=== PATIENT | female | born 1945 | race Hispanic/Latino ===

== ENCOUNTER 2020-05-31 16:34 | Outpatient (CLI) | payer MEDICARE, SELFPAY ==
--- NOTE | ~2020-05-31 | MM_ITS ---
EXAMINATION: MM screening [facility] BI w suzette HISTORY: Screening TECHNIQUE: Craniocaudal and mediolateral oblique 3-D tomosynthesis images were obtained and synthetic 2-D images were generated. CAD analysis was submitted and interpreted. COMPARISON: Comparison to multiple prior studies sequentially, with oldest reviewed study dated 05/2012. BREAST PARENCHYMAL COMPOSITION: FINDINGS: There is no evidence of suspicious mass, calcification, or architectural distortion to sugg est malignancy in either breast. There has been no suspicious interval change. IMPRESSION: 1. No mammographic evidence of malignancy. 2. Recommend routine screening mammography in one year. BI-RADS Category 1: Negative Reviewed, dictated and finalized at location A.
== END 2020-05-31 16:35 | disposition home or self-care (01) ==
LOC: ANHIMG 16:39
PROVIDERS: PCP Registered Nurse; Visit Provider Registered Nurse
DX: Z12.31 Encounter for screening mammogram for malignant neoplasm of breast (principal)
CPT/HCPCS: 77063; 77067

== ENCOUNTER 2020-09-10 16:39 | Emergency (ER) | payer MEDICARE, SELFPAY ==
--- NOTE | ~2020-09-10 | CT_ITS ---
EXAMINATION: CT brain wo con, CT cervical spine wo con EXAM DATE: 09/10/2020 17:08 INDICATION: Fall one week ago. Left-sided headache. TECHNIQUE: Spiral CT of the head was performed without contrast. Axial, coronal and sagittal images were reviewed. Spiral CT of the cervical spine was performed without contrast. Axial images were rev iewed. Coronal and sagittal reformatted images were also reviewed. The dose-length product (DLP) fo r this examination was 605.33 (accession [id number]), 251.75 (accession [id number]) mGy-cm. The exposure was tailored according to patient size, and iterative reconstruction (ASIR) was used as additional dose reduction technique. There is no prior study for comparison. FINDINGS: HEAD CT: There is no acute intraparenchymal hemorrhage. No evidence of intraparenchymal brain mass l esion. No evidence of acute infarction. There is no mass effect or midline shift. There is no obstru ctive hydrocephalus suspected. There are no extra-axial collections. There are no acute calvarial f ractures. The orbits are unremarkable. Soft tissue is unremarkable. The visualized sinuses and mas toid air cells are well aerated. CERVICAL CT: There is no evidence of acute cervical fracture. The odontoid process is intact. Pre-d ens space is normal. Prevertebral soft tissue is normal. There are no soft tissue abnormalities laura ntified. There is no disc space widening or traumatic vertebral body subluxation suspected. Some ad vanced cervical spondylosis. A detailed level by level evaluation of spondylosis can be added as add endum if requested. IMPRESSION: No acute intracranial findings or cervical fracture. Reviewed, dictated and finalized at location A. ER MAN IMPRESSION: No acute intracranial findings or cervical fracture.
[2020-09-10 16:46] VITALS: BP 135/60; PULSE 64; RESP 20; TEMP 36.7; O2SAT 100
--- NOTE | 2020-09-10 16:53 | ED.GENADULT ---
HPI - General Adult General Chief complaint: Headache Stated complaint: headache after a fall Time Seen by Provider: 09/10/20 16:47 Source: patient and family Limitations: language barrier History of Present Illness HPI narrative: Patient is 74 y/o female complaining of bilateral frontal and temporal headache for 1 month. She describes her pain as a pressure and rates it as 8/10. She took Tylenol, which does not help much. She has no focal weakness/numbness, fever, nausea, vomiting or neck pain. She has been having frequent falls. She denies any LOC. Of note, daughter provided history as patient non-Mongolian speaking. Related Data Home Medications Medication Instructions Recorded Confirmed Fosamax 09/10/20 hydrochlorothiazide 09/10/20 levothyroxine 09/10/20 losartan 09/10/20 metformin mg 09/10/20 pravastatin 09/10/20 Allergies Allergy/AdvReac Type Severity Reaction Status Date / Time No Known Allergies Allergy Verified 09/10/20 16:48 Review of Systems Constitutional: Constitutional: Denies chills, Denies fever(s), Reports headache(s) and Denies weakness Eyes: Eyes: Denies blurry vision ENT: Reports headache(s) and Denies neck pain Cardiovascular: Cardiovascular: Denies chest pain and Denies dyspnea Respiratory: Respiratory: Denies cough and Denies dyspnea Gastrointestinal: Gastrointestinal: Denies abdominal pain, Denies diarrhea, Denies nausea and Denies vomiting Genitourinary: Genitourinary: Denies hematuria and Denies dysuria Musculoskeletal: Musculoskeletal: Denies back pain and Denies neck pain Neurologic: Reports headache(s) and Denies weakness Exam Const: General: no acute distress and well developed Orientation/consciousness: oriented to person, oriented to place, oriented to time and patient oriented x3 HENMT: Head: normocephalic Ears: external ears normal General nose exam: Normal external nose present Eyes: General: appearance normal, both eyes and all related structures Conjunctivae: conjunctivae normal Neck: Neck: normal visual inspection and full ROM Chest: Chest palpation & inspection: normal inspection of the chest and no tenderness Resp: Effort & Inspection: normal respiratory effort Auscultation: clear to auscultation bilaterally Cardio: Rate: regular rate Rhythm: regular rhythm GI: GI Palp: No abdominal tenderness and Yes Soft to palpation Skin: General skin exam: normal color and turgor normal Neuro: General: oriented to person, oriented to place, oriented to time and patient oriented x3 Cognition (Neuro): normal cognition Extrem: General: normal to inspection, full ROM and no pedal edema Psych: Appearance: grossly normal Mental Status: mental status grossly normal Affect: normal affect Course Vital Signs Vital signs: Vital Signs Temperature 36.7 C 09/10/20 16:46 Pulse Rate 64 09/10/20 16:46 Respiratory Rate 20 09/10/20 16:46 Blood Pressure 135/60 09/10/20 16:46 Pulse Oximetry 100 09/10/20 16:46 Temperature 36.7 C 09/10/20 16:46 Pulse Rate 66 09/10/20 18:35 Respiratory Rate 18 09/10/20 18:35 Blood Pressure 121/59 L 09/10/20 18:35 Pulse Oximetry 98 09/10/20 18:35 Medical Decision Making Vital Signs Vital Signs: Vital Signs Temperature 36.7 C 09/10/20 16:46 Pulse Rate 64 09/10/20 16:46 Respiratory Rate 20 09/10/20 16:46 Blood Pressure 135/60 09/10/20 16:46 Pulse Oximetry 100 09/10/20 16:46 Temperature 36.7 C 09/10/20 16:46 Pulse Rate 66 09/10/20 18:35 Respiratory Rate 18 09/10/20 18:35 Blood Pressure 121/59 L 09/10/20 18:35 Pulse Oximetry 98 09/10/20 18:35 Lab Data Result diagrams: 09/10/20 17:14 09/10/20 17:14 Labs: Lab Results 09/10/20 09/10/20 09/10/20 Range/Units 17:14 17:14 17:14 WBC 8.1 (4.5-10.0) K/mm3 RBC 4.32 (4.2-5.4) M/mm3 Hgb 12.8 (12.0-15.0) g/dL Hct 38.9 (37.0-47.0) % MCV 90.0 (80-100) f
[2020-09-10 17:22] LABS: Basophils Percent Auto 0.5 % (0.2-1.2); Eosinophils Absolute Auto 0.2 K/mm3 (0-0.3); Eosinophils Percent Auto 2.1 % (0-4.4); Hematocrit 38.9 % (37.0-47.0); Hemoglobin 12.8 g/dL (12.0-15.0); Immature Granulocyte Absolute 0.02 K/mm3 (0.00-0.031); Immature Granulocyte Percent A 0.2 % (0-0.5); Lymphocytes Percent Auto 46.9 % (18.3-44.2); Mean Corpuscular HGB Conc 32.9 g/dl (32-36); Mean Corpuscular Hemoglobin 29.6 pg (26-34); Mean Platelet Volume 12.4 fl (7.4-10.4); Monocytes Absolute Auto 0.8 K/mm3 (0.1-0.6); Monocytes Percent Auto 9.4 % (2.6-8.5); Neutrophils Absolute Auto 3.3 K/mm3 (1.3-6.7); Neutrophils Percent Auto 40.9 % (45.5-73.1); Platelet Count Result 230 k/mm3 (150-375); Red Blood Count 4.32 M/mm3 (4.2-5.4); Red Cell Distribution Width 12.9 % (11.5-14.5); White Blood Count 8.1 K/mm3 (4.5-10.0)
[2020-09-10 17:30] VITALS: BP 137/64; PULSE 71; RESP 18; O2SAT 99
[2020-09-10 17:44] LABS: Anion Gap 8 mmol/L (8-16); Blood Urea Nitrogen 21 mg/dL (7-17); CRP < 0.5 mg/dL (<1.0); Calcium 9.6 mg/dL (8.4-10.2); Carbon Dioxide 32 mmol/L (22-30); Chloride 100 mmol/L (98-107); Estimated Glomerular Filt Rate > 60; Glucose 112 mg/dL (65-105); Potassium 4.7 mmol/L (3.4-5.0); Sodium 140 mmol/L (137-145)
[2020-09-10 17:57] LABS: Erythrocyte Sedimentation Rate 19 mm/hr (0-20)
[2020-09-10 18:35] VITALS: BP 121/59; PULSE 66; RESP 18; O2SAT 98
== END 2020-09-10 18:40 | disposition home or self-care (01) ==
PROVIDERS: Emergency Provider Emergency Medicine; PCP Registered Nurse
DX: R51.9 Headache, unspecified (principal); R29.6 Repeated falls; W19.XXXA Unspecified fall, initial encounter; Z79.84 Long term (current) use of oral hypoglycemic drugs
CPT/HCPCS: 36415; 70450; 72125; 80048; 85025; 85652; 86140; 99284

== ENCOUNTER 2021-12-01 08:06 | Outpatient (CLI) | payer MEDICARE, SELFPAY ==
--- NOTE | ~2021-12-01 | MM_ITS ---
EXAMINATION: MM screening lora BI w suzette HISTORY: Screening TECHNIQUE: Craniocaudal and mediolateral oblique 3-D tomosynthesis images were obtained and synthetic 2-D images were generated. CAD analysis was submitted and interpreted. COMPARISON: Comparison to multiple prior studies sequentially, with oldest reviewed study dated 06/09. BREAST PARENCHYMAL COMPOSITION: Breast composed of scattered areas of fibroglandular density FINDINGS: There is no evidence of suspicious mass, calcification, or architectural distortion to sugg est malignancy in either breast. There has been no suspicious interval change. IMPRESSION: 1. No mammographic evidence of malignancy. 2. Recommend routine screening mammography in one year. BI-RADS Category 1: Negative Reviewed, dictated and finalized at location A. SE MAKER
== END 2021-12-01 08:07 | disposition home or self-care (01) ==
LOC: ANHIMG 08:09
PROVIDERS: PCP Registered Nurse; Visit Provider Registered Nurse
DX: Z12.31 Encounter for screening mammogram for malignant neoplasm of breast (principal)
CPT/HCPCS: 77063; 77067

== ENCOUNTER 2022-04-23 10:05 | Outpatient (CLI) | payer MEDICARE, SELFPAY ==
--- NOTE | ~2022-04-23 | US_ITS ---
EXAMINATION: US soft tissue head and neck DATE: 04/23/2022 10:48 INDICATION: Bilateral upper neck/parotid swelling, mass, or lump. TECHNIQUE: Grayscale and Doppler ultrasound images of the bilateral upper neck/parotid soft tissues w ere obtained. COMPARISON: None. FINDINGS: Normal-appearing lymph nodes in the bilateral neck. Normal-appearing parotid gland bilatera lly. No cystic or solid mass detected. Prominent vascularity in the soft tissues of the upper neck/pa rotid area. IMPRESSION: 1. No solid or cystic mass detected. 2. Generalized soft tissue hypervascularity, correlate with history of central line or central venous obstruction or superficial infection. Reviewed, dictated and finalized at location K.
== END 2022-04-23 10:06 | disposition home or self-care (01) ==
PROVIDERS: PCP Registered Nurse; Visit Provider Registered Nurse
DX: R22.1 Localized swelling, mass and lump, neck (principal)
CPT/HCPCS: 76536

== ENCOUNTER 2023-02-14 17:22 | Emergency (ER) | payer MEDICARE, SELFPAY ==
[2023-02-14 17:32] VITALS: BP 137/53; PULSE 75; RESP 16; TEMP 36; O2SAT 99
--- NOTE | 2023-02-14 17:33 | ED.LOWEXIN ---
HPI - Extremity Injury (Lower) General Chief Complaint: Extremity Injury, Lower Stated Complaint: Right Hip/Foot Pain Time Seen by Provider: 02/14/23 17:33 Source: patient Mode of arrival: ambulatory Limitations: no limitations History of Present Illness HPI Narrative: Patient is a 77-year-old female that presents with right hip pain after fall 1 month ago. Reports falling backwards onto right hip. States pain intermittently radiates down to right knee. Also reports intermittent numbness to the right thigh. Denies any weakness to right leg. Has tried naproxen, Tylenol, Advil with no relief. Able to ambulate unassisted Related Data Home Medications Medication Instructions Recorded Confirmed metformin 500 mg tablet 1,000 mg PO DAILY 09/10/20 02/14/23 pravastatin 40 mg tablet 40 mg PO DAILY 09/10/20 02/14/23 alendronate 70 mg tablet 70 mg PO DAILY 02/14/23 02/14/23 levothyroxine 75 mcg tablet 75 mcg PO DAILY 02/14/23 02/14/23 losartan 50 mg-hydrochlorothiazide 1 tablet PO DAILY 02/14/23 02/14/23 12.5 mg tablet omeprazole 20 mg capsule,delayed 20 mg PO DAILY 02/14/23 02/14/23 release Allergies Allergy/AdvReac Type Severity Reaction Status Date / Time No Known Allergies Allergy Verified 02/14/23 17:32 Review of Systems Review of Systems: All systems reviewed & are unremarkable except as noted in HPI and below Constitutional: Constitutional: Denies body ache(s), Denies fever(s), Denies headache(s), Denies malaise and Denies weakness Eyes: Eyes: Denies loss of vision ENT: Denies otalgia, Denies headache(s), Denies nasal discharge, Denies sinus pain and Denies sore throat Cardiovascular: Cardiovascular: Denies chest pain, Denies irregular heart rhythm and Denies dyspnea Respiratory: Respiratory: Denies dyspnea Gastrointestinal: Gastrointestinal: Denies abdominal pain, Denies melena, Denies hematochezia, Denies diarrhea, Denies nausea and Denies vomiting Musculoskeletal: Musculoskeletal: Reports back pain, Denies myalgias and Reports arthralgias (right hip) Integumentary/Breasts: Skin/Breast: Denies pruritus and Denies rash Neurologic: Denies headache(s), Denies loss of vision and Denies weakness Psychiatric: Psychiatric: Reports no additional psychiatric complaints PMFSH Comments At time of signature, agree with nursing past medical, surgical, social and family history. There is no relevant family history pertinent to the presenting complaint. Exam Const: General: cooperative, healthy appearing, comfortable, no acute distress and well nourished Nutritional Appearance: well nourished Orientation/consciousness: patient oriented x3 Limitations: no limitations HENMT: Head: normal to inspection, normocephalic and atraumatic Ears: external ears normal Face/Nose/Sinus: Normal external nose present, normal facial exam and face symmetric Face and sinus: normal facial exam and face symmetric Mouth: Yes lip normal Eyes: General: appearance normal, both eyes and all related structures Alignment and Position: alignment normal and position normal Periorbital: periorbital findings normal Eyelids: eyelids normal Pupils: Equal, round and reactive pupils present EOM: EOMs intact bilaterally Neck: Neck: normal visual inspection and full ROM Chest: Chest palpation & inspection: normal inspection of the chest Resp: Effort & Inspection: normal respiratory effort and able to speak in complete sentences Auscultation: clear to auscultation bilaterally Cardio: Rate: regular rate Rhythm: regular rhythm Heart sounds: S1 normal heart sound present and S2 normal heart sound present GI: Inspection: normal to inspection Back/Spine/Pelvis: Thoracic/Lumbar Spine: paraspinal muscle tenderness on the right in the lower lumbar and straight leg raise positive right Skin: General skin exam: normal color and no rashes or lesions noted Neuro: General: patient oriented x3 and moves all extremities Cranial nerves: Yes Equal
== END 2023-02-14 18:39 | disposition home or self-care (01) ==
PROVIDERS: Emergency Provider Nurse Practitioner Family; PCP Registered Nurse
DX: M54.31 Sciatica, right side (principal); E78.00 Pure hypercholesterolemia, unspecified; I10 Essential (primary) hypertension; K21.9 Gastro-esophageal reflux disease without esophagitis; M81.0 Age-related osteoporosis without current pathological fracture; E11.9 Type 2 diabetes mellitus without complications; E03.9 Hypothyroidism, unspecified
CPT/HCPCS: 99213; G0463

== ENCOUNTER 2023-03-21 14:25 | Emergency (ER) | payer MEDICARE, SELFPAY ==
--- NOTE | ~2023-03-21 | XR_ITS ---
EXAMINATION: XR chest 2V 03/21/2023 15:04 INDICATION: Weakness, body aches and fever. Nausea and vomiting. PROCEDURE: 2 view chest COMPARISON: 03/27/2022 FINDINGS: The lungs are clear. The cardiomediastinal silhouette is within normal limits. There are no pleural effusions. There is no pneumothorax suspected. IMPRESSION: 1: NO ACUTE CARDIOPULMONARY DISEASE. Reviewed, dictated and finalized at location B.
[2023-03-21 14:29] VITALS: BP 138/60; PULSE 97; RESP 18; TEMP 36.5; O2SAT 98
--- NOTE | 2023-03-21 14:31 | ECG_ITS ---
Measurements Intervals [place] Rate: 91 P: 44 RI: 146 QRS: -7 QRSD: 84 T: -2 QT: 353 QTc: 436 Interpretive Statements SINUS RHYTHM LEFT VENTRICULAR HYPERTROPHY BORDERLINE ST-T WAVE ABNORMALITY- ANT/INF LEADS BORDERLINE ECG NO PREVIOUS ECG AVAILABLE FOR COMPARISON Electronically Signed On 03-21-2023 15:49:56 CDT by Darrick Camara D.O.
[2023-03-21 14:48] LABS: Basophils Percent Auto 0.2 % (0.2-1.2); Hematocrit 39.1 % (37.0-47.0); Hemoglobin 12.9 g/dL (12.0-15.0); Immature Granulocyte Absolute 0.03 K/mm3 (0.00-0.031); Immature Granulocyte Percent A 0.4 % (0-0.5); Lymphocytes Absolute Auto 1.71 K/mm3 (0.9-3.2); Lymphocytes Percent Auto 20.2 % (18.3-44.2); Mean Corpuscular Hemoglobin 28.4 pg (26-34); Mean Corpuscular Volume 85.9 fl (80-100); Mean Platelet Volume 12.1 fl (7.4-10.4); Monocytes Percent Auto 11.2 % (2.6-8.5); Neutrophils Absolute Auto 5.7 K/mm3 (1.3-6.7); Platelet Count Result 259 k/mm3 (150-375); Red Blood Count 4.55 M/mm3 (4.2-5.4); Red Cell Distribution Width 13.7 % (11.5-14.5); White Blood Count 8.5 K/mm3 (4.5-10.0)
[2023-03-21 15:00] LABS: Alanine Aminotransferase 26 U/L (6-35); Albumin Level 4.9 g/dL (3.5-5.1); Alkaline Phosphatase 48 U/L (38-126); Anion Gap 9 mmol/L (8-16); Aspartate Amino Transferase 27 U/L (14-36); Bilirubin,Total 0.6 mg/dL (0.2-1.3); Blood Urea Nitrogen 17 mg/dL (7-17); Calcium 9.5 mg/dL (8.4-10.2); Carbon Dioxide 31 mmol/L (22-30); Chloride 96 mmol/L (98-107); Estimated CRCL calculation 49 ml/min; Estimated Glomerular Filt Rate > 60; Glucose 145 mg/dL (65-110); Potassium 3.5 mmol/L (3.4-5.0); Sodium 136 mmol/L (137-145)
[2023-03-21 15:24] LABS: Influenza A QL RT-PCR Negative (Negative); Influenza B QL RT-PCR Negative (Negative); SARS-CoV-2 RNA PCR Positive (Negative)
--- NOTE | 2023-03-21 17:10 | ED.FEVER ---
HPI - Fever General Chief Complaint: Fever Stated Complaint: weakness/fever Time Seen by Provider: 03/21/23 16:52 History of Present Illness HPI Narrative: 77-year-old making female here for evaluation of fever, body aches, nausea and vomiting x4 days. Patient had a fever of 100 and she has been treating with Tylenol, last taken last evening. Her is experiencing similar symptoms at home. Decided to come in today because she was feeling dehydrated. She is fully vaccinated against COVID. Related Data Home Medications Medication Instructions Recorded Confirmed metformin 500 mg tablet 1,000 mg PO DAILY 09/10/20 02/14/23 pravastatin 40 mg tablet 40 mg PO DAILY 09/10/20 02/14/23 alendronate 70 mg tablet 70 mg PO DAILY 02/14/23 02/14/23 levothyroxine 75 mcg tablet 75 mcg PO DAILY 02/14/23 02/14/23 losartan 50 mg-hydrochlorothiazide 1 tablet PO DAILY 02/14/23 02/14/23 12.5 mg tablet omeprazole 20 mg capsule,delayed 20 mg PO DAILY 02/14/23 02/14/23 release Allergies Allergy/AdvReac Type Severity Reaction Status Date / Time No Known Allergies Allergy Verified 02/14/23 17:32 Review of Systems Review of Systems: Gen: Reports fevers and chills Eyes: Denies eye pain or visual change ENT: Denies congestion Respiratory: Denies shortness of breath or cough CV: Denies chest pain or palpitations GI: Reports nausea and vomiting : denies burning, urgency, frequency or hematuria Musculoskeletal: Denies back pain or muscle pain Neuro: Denies numbness, tingling, weakness or focal weakness Skin: Denies rash Except as documented, all other systems reviewed and negative Exam Narrative: APPEARANCE: Well appearing, no pain in distress, well-nourished. Head: Normocephalic and atraumatic. EYES: PERRLA/EOMI, conjunctivae clear NOSE: No nasal drainage EARS: External ear normal in appearance THROAT: Oropharynx is clear. Mucous membranes are moist. NECK: Supple. No adenopathy, no masses. RESPIRATORY: Airway patent, respirations nonlabored. Clear to auscultation bilaterally, no rales, rhonchi, wheezing. CARDIOVASCULAR: Regular rate and rhythm without murmurs, rubs, or gallops. ABDOMINAL: Normoactive bowel sounds. Soft, nontender, nondistended. No rebound tenderness or guarding. MUSCULOSKELETAL: Extremities are warm and well-perfused. Moves all extremities well. No edema. NEURO: Normal speech. No focal neurologic deficits. SKIN: Skin is warm and dry. No rashes. PSYCHIATRIC: Normal affect/mood. Course Vital Signs Vital signs: Vital Signs Temperature 97.7 F 03/21/23 14:29 Pulse Rate 97 03/21/23 14:29 Respiratory Rate 18 03/21/23 14:29 Blood Pressure 138/60 03/21/23 14:29 Pulse Oximetry 98 03/21/23 14:29 Oxygen Delivery Room Air 03/21/23 14:29 Temperature 97.7 F 03/21/23 14:29 Pulse Rate 80 03/21/23 17:21 Respiratory Rate 18 03/21/23 17:21 Blood Pressure 122/64 03/21/23 17:21 Pulse Oximetry 95 03/21/23 17:21 Oxygen Delivery Room Air 03/21/23 16:46 MDM - Fever MDM Narrative Medical decision making narrative: 77-year-old female here for evaluation of fevers, generalized malaise, body aches x4 days. Found to be COVID-positive which likely explains her symptoms. Chest x-ray is clear. EKG is nonischemic. Vital signs are normal, no hypoxia, patient was ambulated throughout the ED and did not desaturate below 94%. Patient is fully vaccinated against COVID, unlikely to have severe disease course, unfortunately Paxlovid interacts with her home medicines. She is also found to have a UTI and will treat with Macrobid. Discussed return precautions. Lab Data 03/21/23 14:41 03/21/23 14:36 Labs: Lab Results 03/21/23 03/21/23 03/21/23 Range/Units 14:36 14:41 17:10 WBC 8.5 (4.5-10.0) K/mm3 RBC 4.55 (4.2-5.4) M/mm3 Hgb 12.9 (12.0-15.0) g/dL Hct 39.1 (37.0-47.0) % MCV 85.9 (80-100) fl MCH 28.4 (26-34) pg M
[2023-03-21] MEDS: ACETAMINOPHEN 325 MG TABLET 650 MG PO (17:11)
[2023-03-21] MEDS: ONDANSETRON INJ 4 MG/2 ML VIAL IV PUSH (17:11)
[2023-03-21] MEDS: SODIUM CHLORIDE 0.9% IV 500 ML 999 ML IV CONT (17:12)
[2023-03-21 17:21] VITALS: BP 122/64; PULSE 80; RESP 18; O2SAT 95
[2023-03-21 17:33] LABS: Appearance Urine Cloudy (Clear); Bacteria Urine 4+ /hpf; Bilirubin Urine 1+ (Negative); Blood Urine 1+ (Negative); Color Urine Dark Yellow (Yellow); Glucose Urine UA Negative (Negative); Ketones Urine 3+ mg/dL (Negative); Leukocyte Esterase Ur Negative LEU/UL (Negative); Mucus Urine Present /lpf; Nitrate Urine Negative (Negative); Protein Urine 3+ mg/dL (Negative); Squamous Epithelial Cell Urine Moderate /hpf (Few); pH Urine 5.5 (5.0-9.0)
[2023-03-21 17:35] LABS: Add Urine Microscopic? YES
== END 2023-03-21 18:15 | disposition home or self-care (01) ==
PROVIDERS: Emergency Medicine; Emergency Provider Physician Assistant; PCP Registered Nurse
DX: U07.1 COVID-19 (principal); N39.0 Urinary tract infection, site not specified; Z79.84 Long term (current) use of oral hypoglycemic drugs
CPT/HCPCS: 36415; 71046; 80053; 81001; 85025; 87077; 87086; 87186; 87636; 93005; 96361; 96374; 99284; A9270; J2405; J7040

== ENCOUNTER 2023-05-21 16:19 | Outpatient (CLI) | payer MEDICARE, SELFPAY ==
--- NOTE | ~2023-05-21 | MM_ITS ---
EXAMINATION: MM screening [facility] BI w suzette HISTORY: Screening mammogram TECHNIQUE: Craniocaudal and mediolateral oblique 3-D tomosynthesis images were obtained and synthetic 2-D images were generated. CAD analysis was submitted and interpreted. COMPARISON: 12/01/2021, 05/31/2020, 05/08/2019 BREAST PARENCHYMAL COMPOSITION: There are scattered areas of fibroglandular density. FINDINGS: No suspicious mass, calcification, or architectural distortion are identified in either sawyer ast to suggest malignancy. There has been no suspicious interval change. IMPRESSION: 1. No mammographic evidence of malignancy. 2. Recommend routine screening mammography in one year. BI-RADS Category 1: Negative Reviewed, dictated and finalized at location A.
== END 2023-05-21 16:20 | disposition home or self-care (01) ==
PROVIDERS: PCP Registered Nurse; Visit Provider Registered Nurse
DX: Z12.31 Encounter for screening mammogram for malignant neoplasm of breast (principal)
CPT/HCPCS: 77063; 77067

== ENCOUNTER 2024-10-18 11:23 | Outpatient (CLI) | payer MEDICARE, SELFPAY ==
--- NOTE | ~2024-10-18 | XR_ITS ---
XR foot LT min 3V Ordering provider: Yulia Gee, [employer] History: . MASS OF LEFT FOOT, MEDIAL, H/O FX 1988 . Comparison: None. FINDINGS: BONES: No acute fracture or dislocation. Calcaneus spur. JOINT SPACES: Narrowing of the proximal and distal interphalangeal joints. Narrowing of the tarsometa tarsal joints. Narrowing of the intertarsal joints is also noted. Prominent osteophytes in the area of the first tarsometatarsal joint. Old healed fracture in the medi al navicular bone is possible. No tarsal coalition. SOFT TISSUES: Normal. IMPRESSION: No acute osseous abnormality left foot. Polyarticular osteoarthritic changes. Reviewed, dictated and finalized at location A. REPAIRER BENCH
== END 2024-10-18 11:24 | disposition home or self-care (01) ==
LOC: ANHIMG 11:26
PROVIDERS: PCP Registered Nurse; Visit Provider Registered Nurse
DX: M19.072 Primary osteoarthritis, left ankle and foot (principal)
CPT/HCPCS: 73630

== ENCOUNTER 2025-08-17 12:08 | Outpatient (CLI) | payer MEDICARE, SELFPAY ==
--- NOTE | ~2025-08-17 | MM_ITS ---
EXAMINATION: MM screening [facility]ora BI w suzette HISTORY: Screening TECHNIQUE: Craniocaudal and mediolateral oblique 3-D tomosynthesis images were obtained and synthetic 2-D images were generated. CAD analysis was submitted and interpreted. COMPARISON: Comparison to multiple prior studies sequentially, with oldest reviewed study dated , 05/08/2019 BREAST PARENCHYMAL COMPOSITION: There are scattered areas of fibroglandular density. FINDINGS: There is no evidence of suspicious mass, calcification, or architectural distortion to suggest malignancy in either breast. IMPRESSION: 1. No mammographic evidence of malignancy. 2. Recommend routine screening mammography in one year. BI-RADS Category 1: Negative Reviewed, dictated and finalized at location B.
== END 2025-08-17 12:09 | disposition home or self-care (01) ==
LOC: CHSIMG 12:09
PROVIDERS: PCP Registered Nurse; Visit Provider Registered Nurse
DX: Z12.31 Encounter for screening mammogram for malignant neoplasm of breast (principal)
CPT/HCPCS: 77063; 77067